=== PATIENT | female | born 1995 | race African-American/Black ===

== ENCOUNTER 2016-10-02 10:28 | Emergency (ER) | payer OTHER ==
[2016-10-02 10:07] LABS: BASOPHILS 0.2 %; BASOPHILS ABSOLUTE 0.01 10/3/uL (0.0-0.16); EOSINOPHILS 0.5 %; EOSINOPHILS ABSOLUTE 0.03 10/3/uL (0.0-0.53); ER CBC TAT 0 Hrs 03 Mins; HEMATOCRIT 37.3 % (36.0-48.0); HEMOGLOBIN 12.1 g/dL (12.0-16.0); IMMATURE GRANULOCYTES 0.2 %; IMMATURE GRANULOCYTES ABSOLUTE 0.01 10/3/uL (0.0-0.11); LYMPHOCYTES 33.7 %; LYMPHOCYTES ABSOLUTE 2.12 10/3/uL (0.67-4.30); MEAN CORPUS HGB CONC 32.4 g/dL (32.0-36.0); MEAN CORPUSCULAR HEMOGLOB 27.3 pg (26.0-34.0); MEAN PLATELET VOLUME 8.8 fL (9.2-13.0); MONOCYTES 5.1 %; MONOCYTES ABSOLUTE 0.32 10/3/uL (0.21-1.20); NEUTROPHILS 60.3 %; NEUTROPHILS ABSOLUTE 3.81 10/3/uL (2.02-8.40); PLATELET COUNT 245 10/3/uL (150-400); RBC DISTRIBUTION WIDTH 12.7 % (12.0-16.0); RED CELL COUNT 4.44 10/6/uL (4.0-5.6); WHITE BLOOD CELLS 6.3 10/3/uL (4.5-10.5)
[2016-10-02 10:09] LABS: MANUAL DIFF NO %
[~2016-10-02 10:28] MED LIST: GLUCPH PO; HYDROCHLOROT25 MG PO; LEVEMIR SC; NOVOLOG SC; NOVOLOG SQ; PRIN10 PO; STRATTERA80 MG PO; VANCOCIN HCL125 MG PO
[2016-10-02 10:51] LABS: A/G RATIO 0.8 (0.7-1.9); ALBUMIN 3.5 G/DL (3.5-5.0); ALKALINE PHOSPHATASE 91 U/L (45-117); BUN (BLOOD UREA NITROGEN) 10 MG/DL (6-23); CALCIUM, SERUM 8.8 MG/DL (8.5-10.4); CHLORIDE, SERUM 103 MMOL/L (96-112); CO2 (CARBON DIOXIDE) 29 MMOL/L (24-34); CREATININE 0.76 MG/DL (0.55-1.02); GFR AFRICAN AMERICAN 129 ML/MIN (>=60); GFR NON AFRICAN AMERICAN 111 ML/MIN (>=60); GLOBULIN 4.2 G/DL (2.5-4.1); POTASSIUM, SERUM 4.1 MMOL/L (3.5-5.3); SGOT(AST) 13 U/L (5-40); SGPT(ALT) 18 U/L (5-65); SODIUM, SERUM 140 MMOL/L (135-148); TOTAL BILIRUBIN 0.2 MG/DL (0-1.2); TOTAL PROTEIN 7.7 G/DL (6.0-8.5)
[2016-10-02 10:52] LABS: GLUCOSE, SERUM 122 MG/DL (60-99)
[2016-10-02 12:03] LABS: ASCORBIC ACID (UR NOT ORDER) NEG (NEG); BILIRUBIN, URINE NEGATIVE (NEG); ER URINALYSIS TAT 0 Hrs 13 Mins; KETONE, URINE NEGATIVE (NEG); LEUKOCYTE ESTERASE(NOT OR NEG (NEG); NITRITE (URINE) NEG (NEG); WBC (NOT ORDERED) (RFLEX) 1 (0-5)
== END 2016-10-02 13:22 | disposition home or self-care (01) ==
LOC: ER 10:28
PROVIDERS: Physician Assistant
DX: R10.13 Epigastric pain (principal); R91.8 Other nonspecific abnormal finding of lung field; I10 Essential (primary) hypertension; E10.9 Type 1 diabetes mellitus without complications
CPT/HCPCS: 71020; 80053; 81001; 83690; 84703; 85025; 93005; 94640; 99284; A9270-GY

== ENCOUNTER 2016-12-15 17:00 | Emergency (ER) | payer OTHER | END 2016-12-15 17:17 | disposition home or self-care (01) | LOC: ER 17:00 | DX: R50.9 Fever, unspecified (principal); R05 Cough; E11.9 Type 2 diabetes mellitus without complications; Z79.4 Long term (current) use of insulin; Z79.899 Other long term (current) drug therapy | CPT/HCPCS: 71020; 93005; 99283; A9270-GY ==